=== PATIENT | male | born 1970 | race Caucasian/White ===

== ENCOUNTER 2020-02-05 14:09 | Emergency (ER) | payer OTHER, SELFPAY ==
[2020-02-05 14:09] VITALS: BP 158/98; PULSE 89; RESP 16; TEMP 36.8; O2SAT 98; BMI 52.2
--- NOTE | 2020-02-05 14:17 | EKG12_ITS ---
Test Reason : CP Blood Pressure : / mmHG Vent. Rate : 089 BPM Atrial Rate : 089 BPM P-R Int : 178 ms QRS Dur : 096 ms QT Int : 370 ms P-R-T Axes : 029 065 038 degrees QTc Int : 450 ms Normal sinus rhythm Normal ECG Confirmed by WANDA PHILIP, FABIAN ([id number]), order editor AARON MONTE ([id number] on 02/06/2020 1:45:43 PM Referred By: Confirmed By:CATHERINE MUÑOZ MD
--- NOTE | 2020-02-05 14:54 | RAD_ITS ---
STUDY: X-RAY CHEST REASON FOR EXAM: Male, 49 years old. CHEST PAIN, HEAVINESS, DIZZINESS TECHNIQUE: 2 frontal images of the chest were obtained. COMPARISON: None. FINDINGS: There is no focal consolidation. Normal size heart. Normal mediastinum and sandy. Normal visualized pulmonary arteries. Normal visualized aortic arch and descending thoracic aorta. Normal visualized thoracic spine. Normal visualized ribs, clavicles, and shoulders. There is no demonstrated abnormality of the visualized soft tissue structures of the upper abdomen. RAD/Chest 1 View (Portable) IMPRESSION: No acute cardiopulmonary process. Electronically Signed: Debra Rowe MD at 15:19 EDT Tel , Service support ,
--- NOTE | 2020-02-05 14:54 | EKG12_ITS ---
Test Reason : REPEAT-CP Blood Pressure : / mmHG Vent. Rate : 076 BPM Atrial Rate : 076 BPM P-R Int : 180 ms QRS Dur : 094 ms QT Int : 390 ms P-R-T Axes : 025 050 026 degrees QTc Int : 438 ms Normal sinus rhythm Normal ECG Confirmed by SHIVA ROMERO MD ([id number]), video tape editor AARON MONTE ([id number]) on 02/06/2020 1:38:22 PM Referred By: AUDI Confirmed By:SHIVA ROMERO MD
--- NOTE | 2020-02-05 15:07 | ED.DCSUM_ITS ---
- ER Visit Summary Date of Service: 02/05/20 Chief Complaint: Chest pain History of Present Illness: The patient is a 49 M who presents with chest pain that began today. Patient states that over the past couple days he started having some lower abdominal pain and back pain. Patient states he saw his prima ry care physician for that. Patient states the test that his primary care physician ordered were all normal. Patient states today he was building a shelf when he became lightheaded. Patient sat down and felt like he was going to pass out. Patient states he then noticed some heaviness in his chest. Patient states this is gotten better since he sat down and rested. Patient states it is over the substernal and bilateral chest area. Patient states he has been having some tingling in his fingers for the past several weeks but this became worse during the episode. Patient admits to nausea but denies any vomiting. Patient states he did have some diaphoresis but denies any shortness of breath or cough. Patient denies any fevers or chills. Physical Examination: Vital signs are stable. Patient is afebrile. Patient is in no acute distress. Oral mucosa is pink and moist. Neck is supple. Trachea is midline. There is no JVD noted. Heart was regular rate and rhythm. Lungs are clear and equal bilaterally. Abdomen is soft. Bowel sounds are normal. There is no tenderness. There is no rebound or guarding noted. Skin is warm dry. Cranial nerves II through XII are intact. There are no focal motor or sensory deficits noted. Extremities are intact. There is no calf tenderness or edema. Test Results: EKG showed normal sinus rhythm with a rate of 89. There are no acute ST or T wave changes. Portable chest x-ray was obtained and does not show any acute cardiopulmonary process. CBC and basic metabolic profile were within normal limits. Troponin was normal. Emergency Department Course and Treatment: Patient was given aspirin here. Patient was ordered sublingual nitroglycerin but did not have any pain during his emergency department stay so this was not given. Since the patient symptoms began approximately 3 hours prior to arrival, I recommended a delta troponin. This was obtained. This was normal. Patient remained pain-free. Patient has a HEART score of 3 and a THEODORE risk score of 1. Patient was advised this is low risk for acute cardiac event. Patient was instructed to follow-up with his primary care physician in 5 to 7 days. Patient understood and was agreeable with the plan. All questions were answered. Disposition: Discharge home Impression: Chest pain This note was generated with [employer] dictation software. It may contain incorrect words, spelling, and punctuation that were not noted in review of the chart prior to signing ED Disposition - Plan for ED Patient: Disposition: Home or Assisted Living Diagnosis: Chest pain Instructions: ED Chest Pain Atypical Unkn Cause Referrals: Sam Siddiqui MD [STAFF PHYSICIAN] - 5-7 Days
[2020-02-05 15:10] LABS: Absolute Neutrophil Count 8.2 X10^3/uL (2.0-7.7); Basophil# 0.04 X10^3/uL; Basophil% 0.3 % (0-1); Eosinophil# 0.11 X10^3/uL; Eosinophils% 0.9 % (0-5); Hematocrit 41.8 % (40-54); Lymphocyte % 18.9 % (19-41); Mean Corp Hgb Conc 33.5 g/dL (32-36); Mean Corpuscular Hgb 28.9 pg (27.0-32.0); Mean Corpuscular Volume 86.4 fL (80-94); Mean Platelet Vol. 8.7 fl (6.2-12.0); Monocyte% 8.6 % (0-10); NRBC Flagged by Analyzer 0 % (0-5); Neutrophil # 8.21 X10^3/uL (2.7-7.7); Neutrophil % 70.8 % (47-70); Platelet Count 373 K/mm3 (150-450); RBC Distribution Width CV 12.8 % (11.6-14.6); RBC Distribution Width SD 40.1 fl (35.1-43.9); Red Blood Count 4.84 M/mm3 (4.6-6.2); White Blood Count 11.6 K/mm3 (4.4-11.0)
[2020-02-05 15:15] VITALS: BP 143/84; PULSE 87; RESP 20; O2SAT 97
[2020-02-05] MEDS: Aspirin 81 MG TAB.CHEW 324 MG PO (15:18)
[2020-02-05 15:28] LABS: Anion Gap 8 (5-15); BUN 16 mg/dL (7-18); BUN/Creat Ratio 12.9 RATIO (10-20); Calcium,Total 9.6 mg/dL (8.5-10.1); Chloride 105 mmol/L (98-107); Creatinine, Serum 1.24 mg/dL (0.70-1.30); EST Glomerular Filtration Rate 65 mL/min (>60); Est Glom Filt Rate - Afr Amer 79 mL/min (>60); Estimated Creatinine Clearance 75.06 ml/min; Glucose 92 mg/dL (74-106); Potassium 3.8 mmol/L (3.5-5.1); Sodium Level 139 mmol/L (136-145)
[2020-02-05 17:13] VITALS: BP 114/57; PULSE 72; RESP 21; O2SAT 97
[2020-02-05 19:05] VITALS: BP 137/81; PULSE 77; RESP 18; TEMP 37.1; O2SAT 98
== END 2020-02-05 19:07 | disposition home or self-care (01) ==
PROVIDERS: Emergency Provider Emergency Medicine; PCP Student in an Organized Health Care Education/Training Program
DX: R07.89 Other chest pain (principal); E66.9 Obesity, unspecified; I10 Essential (primary) hypertension; Z79.899 Other long term (current) drug therapy
CPT/HCPCS: 71045; 80048; 84484; 85025; 93005; 99285; A4216